=== PATIENT | male | born 1950 | race Caucasian/White ===

== ENCOUNTER 2017-05-10 16:13 | Inpatient (IN) | payer OTHER ==
[~2017-05-10] VITALS: Ht 182.9 cm; Wt 79.7 kg
--- NOTE | 2017-05-10 17:56 | EMERGENCY ROOM VISIT NOTE ---
History Report prepared by Natalee: Ben Walker Under the Supervision of: Dr. Qi Pinedo D.O. First contact with patient: 17:04 Chief Complaint: CONFUSION Stated Complaint: AMS/ WHILE DRIVING CAR Nursing Triage Summary: Patient arrived via BLS from driving in his car. Patient is from [place] but was driving to see family in [place] when several people noticed he was swarving all over the road and called the police. Police arrived on scene and the patient appeared to be confused. Patient his history of hemorrhagic stroke in 2001 and has deficits in his right arm (flaccid) and right leg he is able to move, but wears a brace. Per ems report the confusion comes and goes. PT reports his eyes were burning and was trying to put eye drops in and that's why he was swarving. History of Present Illness The patient is a 66 year old male who presents to the Emergency Room with complaints of constant confusion occurring prior to arrival. The patient states that he was driving, and his eye started to get blurry, burning, and teary. He states that someone then called the police on him for swerving on the road, and the EMS brought him for evaluation. He states that he is from [place], and he is currently visiting his sister. He currently denies any dizziness, light headedness, headache, and trouble with his speech. He states that he has seizures, and his last one was in 1999 after not taking his medications, and he also has a history of a stroke. The patient states that he takes Dilantin and lisinopril, though the doses have not changed. He states that he has not taken any of his medications for the past three days. Pt denies fevers, chest pain, shortness of breath, nausea, vomiting, diarrhea, pain with urination, and melena. Source of History: patient Onset: prior to arrival Position: other (global) Quality: other (confusion) Timing: constant Note: Associated symptoms: Blurry vision, burning eyes, and teary eyes. Review of Systems See HPI for pertinent positives & negatives. A total of 10 systems reviewed and were otherwise negative. Past Medical & Surgical Medical Problems: (1) CVA (cerebral vascular accident) (2) Right arm weakness (3) Seizure (4) Stroke Social History Smoking Status: Former Smoker Housing Status: unknown Occupation Status: retired Current/Historical Medications Scheduled Atorvastatin (Lipitor), 20 MG PO DAILY Benzoyl Peroxide (Benzoyl Peroxide), 1 APPLN TOP PRN Cholecalciferol (Vitamin D3), 2 TAB PO DAILY Duloxetine Hcl (Cymbalta), 60 MG PO DAILY Folic Acid (Folic Acid), 1 MG PO DAILY Lisinopril (Zestril), 40 MG PO DAILY Phenytoin Sodium (Dilantin), 400 MG PO QAM Scheduled PRN Aspirin (Aspirin Ec), 81 MG PO DAILY PRN for Pain Allergies Coded Allergies: No Known Allergies (Unverified , 05/10/17) Physical Exam Vital Signs Date Time Temp Pulse Resp B/P (MAP) Pulse Ox O2 Delivery O2 Flow Rate FiO2 05/10/17 22:53 77 18 132/91 99 05/10/17 20:00 71 18 96 05/10/17 19:30 80 19 122/86 98 05/10/17 19:10 135/95 05/10/17 18:24 78 18 124/86 96 Room Air 05/10/17 17:39 79 18 134/86 98 Room Air 05/10/17 16:32 78 05/10/17 16:26 97 Room Air 05/10/17 16:26 37.0 78 18 134/87 97 Room Air Physical Exam GENERAL: alert, well appearing, well nourished, no distress, non-toxic EYE EXAM: normal conjunctiva, PERRL and EOM's grossly intact OROPHARYNX: Ill fitting dentures. No exudate, no erythema, lips, buccal mucosa, and tongue normal and mucous membranes are moist NECK: supple, no nuchal rigidity, no adenopathy, non-tender LUNGS: Diminished breath sounds. No wheezing, rhonchi, or rales. HEART: no murmurs, S1 normal and S2 normal ABDOMEN: abdomen soft, non-tender, normo-active bowel sounds, no masses, no rebound or guarding. BACK: Back is symmetrical on inspection and there is no deformity, no midline tenderness, no CVA tenderness. SKIN: no rashes and no bruising UPPER EXTREMITIES: Right upper extremity has a decreased range of motion and weakness secondary to a prior stroke. Atrophy and contracture of the right hand secondary to prior stroke. Pulses and sensory intact. LOWER EXTREMITIES: Right lower extremity in a brace. Both extremities have normal pulses and no edema. NEURO EXAM: Awake, alert, and oriented, but slightly slow to respond. Difficult to tell whether dysarthria from ill-fitting dentures or secondary to prior stroke. Medical Decision & Procedures ER Provider Diagnostic Interpretation: Radiology results have been interpreted by the radiologist and reviewed by me. HEAD WITHOUT CONTRAST (CT) CT DOSE: 823.94 mGycm HISTORY: Mental status change confusion TECHNIQUE: Multiaxial CT images of the head were performed without the use of intravenous contrast. A dose lowering technique was utilized adhering to the principles of ALARA. Comparison: None. Findings: The paranasal sinuses and mastoid air cells are clear. The calvarium and skull base are intact. The ventricles and sulci are within normal limits. There is no mass, hematoma, midline shift, or acute infarct. Old left cerebral infarct. No acute intracranial hemorrhage. No midline shift. Impression: Old left cerebral infarct. Age-related atrophy. No acute intracranial abnormality. The above report was generated using voice recognition software. It may contain grammatical, syntax or spelling errors. Electronically signed by: Cem Palomares M.D. 05/10/2017 7:08 PM Dictated Date/Time: 05/10/2017 7:06 PM Laboratory Results 05/10/17 18:41 Red Blood Count 4.09, Mean Corpuscular Volume 89.5, Mean Corpuscular Hemoglobin 29.3, Mean Corpuscular Hemoglobin Concent 32.8, Mean Platelet Volume 9.4, Neutrophils (%) (Auto) 56.8, Lymphocytes (%) (Auto) 30.1, Monocytes (%) (Auto) 10.7, Eosinophils (%) (Auto) 2.0, Basophils (%) (Auto) 0.2, Neutrophils # (Auto ) 3.07, Lymphocytes # (Auto) 1.63, Monocytes # (Auto) 0.58, Eosinophils # (Auto ) 0.11, Basophils # (Auto) 0.01 05/10/17 18:41 Test 05/10/17 18:41 05/10/17 20:21 05/10/17 22:46 White Blood Count 5.41 K/uL (4.8-10.8) Red Blood Count 4.09 M/uL (4.7-6.1) Hemoglobin 12.0 g/dL (14.0-18.0) Hematocrit 36.6 % (42-52) Mean Corpuscular Volume 89.5 fL (80-100) Mean Corpuscular Hemoglobin 29.3 pg (25-34) Mean Corpuscular Hemoglobin Concent 32.8 g/dl (32-36) Platelet Count 153 K/uL (130-400) Mean Platelet Volume 9.4 fL (7.4-10.4) Neutrophils (%) (Auto) 56.8 % Lymphocytes (%) (Auto) 30.1 % Monocytes (%) (Auto) 10.7 % Eosinophils (%) (Auto) 2.0 % Basophils (%) (Auto) 0.2 % Neutrophils # (Auto) 3.07 K/uL (1.4-6.5) Lymphocytes # (Auto) 1.63 K/uL (1.2-3.4) Monocytes # (Auto) 0.58 K/uL (0.11-0.59) Eosinophils # (Auto) 0.11 K/uL (0-0.5) Basophils # (Auto) 0.01 K/uL (0-0.2) RDW Standard Deviation 45.6 fL (36.4-46.3) RDW Coefficient of Variation 13.8 % (11.5-14.5) Immature Granulocyte % (Auto) 0.2 % Immature Granulocyte # (Auto) 0.01 K/uL (0.00-0.02) Prothrombin Time 11.3 SECONDS (9.0-12.0) Prothromb Time International Ratio 1.1 (0.9-1.1) Anion Gap 4.0 mmol/L (3-11) Est Creatinine Clear Calc Drug Dose 70.6 ml/min Estimated GFR () 79.5 Estimated GFR (Non- 68.6 BUN/Creatinine Ratio 14.1 (10-20) Calcium Level 8.9 mg/dl (8.5-10.1) Phosphorus Level 3.2 mg/dl (2.5-4.9) Magnesium Level 2.0 mg/dl (1.8-2.4) Total Bilirubin 0.4 mg/dl (0.2-1) Aspartate Amino Transf (AST/SGOT) 12 U/L (15-37) Alanine Aminotransferase (ALT/SGPT) 12 U/L (12-78) Alkaline Phosphatase 83 U/L (45-117) Troponin I < 0.015 ng/ml (0-0.045) Total Protein 6.7 gm/dl (6.4-8.2) Albumin 3.5 gm/dl (3.4-5.0) Globulin 3.2 gm/dl (2.5-4.0) Albumin/Globulin Ratio 1.1 (0.9-2) Thyroid Stimulating Hormone (TSH) 0.890 uIu/ml (0.300-4.500) Phenytoin (Dilantin) Level 3.9 mcg/mL (10-20) Urine Color DK YELLOW Urine Appearance CLEAR (CLEAR) Urine pH 5.0 (4.5-7.5) Urine Specific [place] 1.032 (1.000-1.030) Urine Protein TRACE (NEG) Urine Glucose (UA) NEG (NEG) Urine Ketones NEG (NEG) Urine Occult Blood NEG (NEG) Urine Nitrite NEG (NEG) Urine Bilirubin NEG (NEG) Urine Urobilinogen NEG (NEG) Urine Leukocyte Esterase NEG (NEG) Urine WBC (Auto) 1-5 /hpf (0-5) Urine RBC (Auto) 0-4 /hpf (0-4) Urine Hyaline Casts (Auto) 1-5 /lpf (0-5) Urine Epithelial Cells (Auto) 5-10 /lpf (0-5) Urine Bacteria (Auto) NEG (NEG) Urine Opiates Screen NEG (NEG) Urine Methadone, Qualitative NEG (NEG) Urine Barbiturates NEG (NEG) Urine Phencyclidine (PCP) Level NEG (NEG) Ur Amphetamine/Methamphetamine NEG (NEG) MDMA (Ecstasy) Screen NEG (NEG) Urine Benzodiazepines Screen NEG (NEG) Urine Cocaine Metabolite NEG (NEG) Urine Marijuana (THC) NEG (NEG) Laboratory results per my review. ECG Indication: other (confusion) Rate (beats per minute): 77 Rhythm: sinus rhythm Findings: T-wave inversion (isolated in Lead 3), no acute ischemic change, other (Normal axis, normal interval) ED Course 1703: The patient was evaluated in room A12. A complete history and physical exam was performed. 1816: I talked to the patient, and he is now agreeable to labs and radiology testing. 1900: I talked with the patient's brother on the phone, and he states that the patient is driving from [place] to visit his sister in [place]. He states that during the patient's previous stroke they were suspicious of cocaine use, though he does not think that the patient uses drugs anymore. He additionally notes that the patient is occasionally non-compliant. He states that the story he heard was that the patient was diving slow and erratically, and bystanders thought that he was drunk. Additionally, at one point he was driving on the wrong side of the road. 2041: I discussed the patient with his sister over the phone, and she was unaware of his condition today. 2044: I reevaluated the patient, and he is agreeable to the treatment plan. 2138: I reviewed the patient's case with Dr. Nelson. He will evaluate the patient for further management. Medical Decision Differential diagnosis: Etiologies such as metabolic, infection, hypoglycemia, electrolyte abnormalities , cardiac sources, intracerebral event, toxicologic, neurologic, as well as others were entertained. Patient here denying any complaints, was oriented and I suspect in his usual state of health despite chronic right-sided deficits from prior stroke. I discussed the patient's presentation today and events leading up to his ER visit with his siblings who are concerned as well. They state patient will often pick and choose one to take his medications. Concern given altered mental status noted on scene by police and EMS for possible stroke versus seizure. No evidence of infectious etiology or joint abnormality found. After extensive bedside conversation, patient eventually agreeable with admission for continued monitoring and treatment. Patient given dose of his usual medications here as he had not taken them in 3 days. Medication Reconcilliation Current Medication List: was personally reviewed by me Blood Pressure Screening Patient's blood pressure: Normal blood pressure Consults Time Called: 2100 Consulting Physician: Dr. Nelson Returned Call: 2138 I reviewed the patient's case with Dr. Nelson. He will evaluate the patient for further management. Impression Primary Impression: Change in mental status Additional Impressions: Confusion Right arm weakness Noncompliance Scribe Attestation The scribe's documentation has been prepared under my direction and personally reviewed by me in its entirety. I confirm that the note above accurately reflects all work, treatment, procedures, and medical decision making performed by me. Departure Information Dispostion Being Evaluated By Hospitalist Patient Instructions My [facility] Problem Qualifiers Primary Impression: Change in mental status Altered mental status type: transient alteration of awareness Qualified Codes : R40.4 - Transient alteration of awareness
[2017-05-10] MEDS ORDERED: DULO60CA44 PO (18:47)
[2017-05-10] MEDS ORDERED: FLV1 PO (18:47)
[2017-05-10] MEDS ORDERED: BENZ10LO15 TOP (18:47)
[2017-05-10] MEDS ORDERED: ASPI81TA28 PO (18:47)
[2017-05-10] MEDS ORDERED: ATOR-22 PO (18:47)
[2017-05-10] MEDS ORDERED: CHOL1000 PO (18:47)
[2017-05-10] MEDS ORDERED: LISI40TA PO (18:47)
[2017-05-10] MEDS ORDERED: PHN/100 PO (18:47)
--- NOTE | 2017-05-10 19:10 | DIAGNOSTIC IMAGING REPORT ---
HEAD WITHOUT CONTRAST (CT) CT DOSE: 823.94 mGycm HISTORY: Mental status change confusion TECHNIQUE: Multiaxial CT images of the head were performed without the use of intravenous contrast. A dose lowering technique was utilized adhering to the principles of ALARA. Comparison: None. Findings: The paranasal sinuses and mastoid air cells are clear. The calvarium and skull base are intact. The ventricles and sulci are within normal limits. There is no mass, hematoma, midline shift, or acute infarct. Old left cerebral infarct. No acute intracranial hemorrhage. No midline shift. Impression: Old left cerebral infarct. Age-related atrophy. No acute intracranial abnormality. The above report was generated using voice recognition software. It may contain grammatical, syntax or spelling errors. Electronically signed by: Cem Palomares M.D. 05/10/2017 7:08 PM Dictated Date/Time: 05/10/2017 7:06 PM
[2017-05-10 19:14] LABS: BASO % 0.2 %; BASO ABS # 0.01 K/uL (0-0.2); COMPLETE YES; HEMATOCRIT 36.6 % (42-52); IG% 0.2 %; LYMPH % 30.1 %; LYMPH ABS # 1.63 K/uL (1.2-3.4); MEAN CELL VOLUME 89.5 fL (80-100); MEAN CORPUSCULAR HEMOGLOBIN 29.3 pg (25-34); MEAN CORPUSCULAR HGB CONC 32.8 g/dl (32-36); MEAN PLATELET VOLUME 9.4 fL (7.4-10.4); MONO % 10.7 %; NEUT % 56.8 %; PLATELET COUNT 153 K/uL (130-400); RED BLOOD COUNT 4.09 M/uL (4.7-6.1); WHITE BLOOD COUNT 5.41 K/uL (4.8-10.8)
[2017-05-10 19:31] LABS: ALT/SGPT 12 U/L (12-78); BLOOD UREA NITROGEN 16 mg/dl (7-18); BUN/CREATININE RATIO 14.1 (10-20); CALCIUM 8.9 mg/dl (8.5-10.1); CARBON DIOXIDE 29 mmol/L (21-32); CHLORIDE 111 mmol/L (98-107); GLUCOSE 88 mg/dl (70-99); POTASSIUM 3.7 mmol/L (3.5-5.1); SODIUM 144 mmol/L (136-145)
[2017-05-10 19:33] LABS: INR 1.1 (0.9-1.1); PROTHROMBIN TIME (PATIENT) 11.3 SECONDS (9.0-12.0)
[2017-05-10 19:42] LABS: ALB/GLOB RATIO 1.1 (0.9-2); ALKALINE PHOSPHATASE 83 U/L (45-117); AST/SGOT 12 U/L (15-37); PHOSPHORUS 3.2 mg/dl (2.5-4.9)
[2017-05-10 20:43] LABS: URINE APPEARANCE CLEAR (CLEAR); URINE COLOR DK YELLOW; URINE NITRITE NEG (NEG); URINE SPECIFIC GRAVITY 1.032 (1.000-1.030); UROBILINOGEN NEG (NEG); ZZUR CULT IF INDIC CLEAN CATCH NO
[2017-05-10 20:45] LABS: MANUAL MICROSCOPIC REQUIRED? NO; REVIEW REQ? NO
[2017-05-10 20:47] LABS: URINE BILIRUBIN NEG (NEG)
[2017-05-10 21:08] LABS: BENZODIAZEPINE, URINE NEG (NEG); COCAINE,URINE NEG (NEG); PHENCYCLIDINE, URINE NEG (NEG)
[2017-05-10] MEDS ORDERED: PHARMACIST DISCHARGE MED REC CONSULT PRN (23:00)
[2017-05-10] MEDS ORDERED: ACETAMINOPHEN IV 100 ML IV PRN (23:00)
[2017-05-10] MEDS ORDERED: ONDANSETRON INJ 2 MG/ML 2 ML VIAL IV PRN (23:00)
[2017-05-10] MEDS ORDERED: ASPIRIN 81 MG ECTAB PO PRN (23:15)
--- NOTE | 2017-05-10 23:23 | History and Physical ---
History & Physical Date & Time of Service: May 10, 2017 at 23:23 Chief Complaint: Ams/ While Driving Car Primary Care Physician: No Doctor, Assigned History of Present Illness Source: patient, hospital records The patient is a 58-year-old male brought to the emergency department by EMS due to constant confusion that occurred prior to arrival. The patient reported that while he was driving his vision started to get E with burning and tearing, and he was reported to the police due to swerving on the road. Patient reports that he is from [place], and currently is visiting his sister. He reports that he has history of seizures, with the last one in the year 1999, and also has a history of stroke. He reports that he has not taken his Dilantin or lisinopril for the past 3 days. He wears a brace on his right leg due to residual deficits from a previous hemorrhagic stroke in 2001. He was noted to have right arm deficit of unknown chronicity. Social History Smoking Status: Former Smoker Smokeless Tobacco Use: No Alcohol Use: none Drug Use: none Occupational Status: retired Immunizations History of Influenza Vaccine: Unknown History of Tetanus Vaccine?: Unknown History of Pneumococcal: Unknown History of Hepatitis B Vaccine: Unknown Multi-Drug Resistant Organisms History of MDRO: No Allergies Coded Allergies: No Known Allergies (Unverified , 05/10/17) Home Medications Scheduled Atorvastatin (Lipitor), 20 MG PO DAILY Benzoyl Peroxide (Benzoyl Peroxide), 1 APPLN TOP PRN Cholecalciferol (Vitamin D3), 2 TAB PO DAILY Duloxetine Hcl (Cymbalta), 60 MG PO DAILY Folic Acid (Folic Acid), 1 MG PO DAILY Lisinopril (Zestril), 40 MG PO DAILY Phenytoin Sodium (Dilantin), 400 MG PO QAM Scheduled PRN Aspirin (Aspirin Ec), 81 MG PO DAILY PRN for Pain Review of Systems The patient denies chest pain, palpitations, shortness of breath, cough, lower extremity swelling, vision change, hearing change, sore throat, fevers, chills, sweats, weight change, fatigue, nausea, vomiting, diarrhea or constipation, abdominal pain, pelvic pain, blood in urine or stool, dysuria, urinary frequency or urgency, lightheadedness, dizziness, headache, rash, abnormal bruising or bleeding, imbalance, generalized weakness, generalized arthralgias or myalgias, back or neck pain, night sweats, or allergy symptoms. The review of systems is otherwise negative other than for that already noted above, and at least 10 systems have been reviewed. Physical Exam Vital Signs Date Time Temp Pulse Resp B/P (MAP) Pulse Ox O2 Delivery O2 Flow Rate FiO2 05/10/17 22:53 77 18 132/91 99 05/10/17 20:00 71 18 96 05/10/17 19:30 80 19 122/86 98 05/10/17 19:10 135/95 05/10/17 18:24 78 18 124/86 96 Room Air 05/10/17 17:39 79 18 134/86 98 Room Air 05/10/17 16:32 78 05/10/17 16:26 97 Room Air 05/10/17 16:26 37.0 78 18 134/87 97 Room Air The patient is awake, well-developed and adequately nourished, alert but disoriented, with upper dental plates falling out of his mouth. lying in bed and in no acute distress. HEENT--PERRL, EOMI, mucous membranes and oropharynx dry. Neck--supple, no JVD or bruits, thyroid normal, trachea midline, no adenopathy. Heart--normal S1 and S2, no extra beats, no murmurs, rubs or gallops. Lungs--clear bilaterally with good air movement, no respiratory distress, no accessory muscle use. Abdomen--normal bowel sounds and soft, nontender and nondistended, no hernias or masses, no organomegaly. Extremities--no cyanosis, clubbing or edema. There are good distal pulses b/l. Dermatologic--normal skin turgor, normal color, warm and dry, no abnormal lymph nodes, no rash. Neurologic--cranial nerves II through XII grossly intact, right upper extremity severely reduced motor strength, with left upper extremity normal. Right lower extremity with brace, and 4+/5 motor, with left lower extremity normal. Rheumatologic--as above under neurologic. Psychiatric--confused Diagnostics Laboratory Results Results Past 24 Hours Test 05/10/17 18:41 05/10/17 20:21 05/10/17 22:46 Range/Units White Blood Count 5.41 4.8-10.8 K/uL Red Blood Count 4.09 4.7-6.1 M/uL Hemoglobin 12.0 14.0-18.0 g/dL Hematocrit 36.6 42-52 % Mean Corpuscular Volume 89.5 80-100 fL Mean Corpuscular Hemoglobin 29.3 25-34 pg Mean Corpuscular Hemoglobin Concent 32.8 32-36 g/dl Platelet Count 153 130-400 K/uL Mean Platelet Volume 9.4 7.4-10.4 fL Neutrophils (%) (Auto) 56.8 % Lymphocytes (%) (Auto) 30.1 % Monocytes (%) (Auto) 10.7 % Eosinophils (%) (Auto) 2.0 % Basophils (%) (Auto) 0.2 % Neutrophils # (Auto) 3.07 1.4-6.5 K/uL Lymphocytes # (Auto) 1.63 1.2-3.4 K/uL Monocytes # (Auto) 0.58 0.11-0.59 K/uL Eosinophils # (Auto) 0.11 0-0.5 K/uL Basophils # (Auto) 0.01 0-0.2 K/uL RDW Standard Deviation 45.6 36.4-46.3 fL RDW Coefficient of Variation 13.8 11.5-14.5 % Immature Granulocyte % (Auto) 0.2 % Immature Granulocyte # (Auto) 0.01 0.00-0.02 K/uL Prothrombin Time 11.3 9.0-12.0 SECONDS Prothromb Time International Ratio 1.1 0.9-1.1 Sodium Level 144 136-145 mmol/L Potassium Level 3.7 3.5-5.1 mmol/L Chloride Level 111 98-107 mmol/L Carbon Dioxide Level 29 21-32 mmol/L Anion Gap 4.0 3-11 mmol/L Blood Urea Nitrogen 16 7-18 mg/dl Creatinine 1.10 0.60-1.40 mg/dl Est Creatinine Clear Calc Drug Dose 70.6 ml/min Estimated GFR () 79.5 Estimated GFR (Non- 68.6 BUN/Creatinine Ratio 14.1 10-20 Random Glucose 88 70-99 mg/dl Calcium Level 8.9 8.5-10.1 mg/dl Phosphorus Level 3.2 2.5-4.9 mg/dl Magnesium Level 2.0 1.8-2.4 mg/dl Total Bilirubin 0.4 0.2-1 mg/dl Aspartate Amino Transf (AST/SGOT) 12 15-37 U/L Alanine Aminotransferase (ALT/SGPT) 12 12-78 U/L Alkaline Phosphatase 83 45-117 U/L Troponin I < 0.015 0-0.045 ng/ml Total Protein 6.7 6.4-8.2 gm/dl Albumin 3.5 3.4-5.0 gm/dl Globulin 3.2 2.5-4.0 gm/dl Albumin/Globulin Ratio 1.1 0.9-2 Thyroid Stimulating Hormone (TSH) 0.890 0.300-4.500 uIu/ml Phenytoin (Dilantin) Level 3.9 10-20 mcg/mL Urine Color DK YELLOW Urine Appearance CLEAR CLEAR Urine pH 5.0 4.5-7.5 Urine Specific [place] 1.032 1.000-1.030 Urine Protein TRACE NEG Urine Glucose (UA) NEG NEG Urine Ketones NEG NEG Urine Occult Blood NEG NEG Urine Nitrite NEG NEG Urine Bilirubin NEG NEG Urine Urobilinogen NEG NEG Urine Leukocyte Esterase NEG NEG Urine WBC (Auto) 1-5 0-5 /hpf Urine RBC (Auto) 0-4 0-4 /hpf Urine Hyaline Casts (Auto) 1-5 0-5 /lpf Urine Epithelial Cells (Auto) 5-10 0-5 /lpf Urine Bacteria (Auto) NEG NEG Urine Opiates Screen NEG NEG Urine Methadone, Qualitative NEG NEG Urine Barbiturates NEG NEG Urine Phencyclidine (PCP) Level NEG NEG Ur Amphetamine/Methamphetamine NEG NEG MDMA (Ecstasy) Screen NEG NEG Urine Benzodiazepines Screen NEG NEG Urine Cocaine Metabolite NEG NEG Urine Marijuana (THC) NEG NEG Diagnostic Radiology Patient Name: NEMO SCHULZ Unit Number: [id number] Dictated: 05/10/171905 Transcribed: 05/10/171905 MS Printed Date/Time: [~ rep prt dt]/[~ rep prt tm] [~ rep ct labl] - [~ rep ct ivnm] [facility] Radiology Department [place], [place] [id number] Dictated: 05/10/171905 Transcribed: 05/10/171905 MS Printed Date/Time: [~ rep prt dt]/[~ rep prt tm] [~ rep ct labl] - [~ rep ct ivnm] [~ rep ct add3]] HEAD WITHOUT CONTRAST (CT) CT DOSE: 823.94 mGycm HISTORY: Mental status change confusion TECHNIQUE: Multiaxial CT images of the head were performed without the use of intravenous contrast. A dose lowering technique was utilized adhering to the principles of ALARA. Comparison: None. Findings: The paranasal sinuses and mastoid air cells are clear. The calvarium and skull base are intact. The ventricles and sulci are within normal limits. There is no mass, hematoma, midline shift, or acute infarct. Old left cerebral infarct. No acute intracranial hemorrhage. No midline shift. Impression: Old left cerebral infarct. Age-related atrophy. No acute intracranial abnormality. The above report was generated using voice recognition software. It may contain grammatical, syntax or spelling errors. Electronically signed by: Cem Palomares M.D. 05/10/2017 7:08 PM Dictated Date/Time: 05/10/2017 7:06 PM The status of this report is Signed. Draft = Not yet reviewed or approved by Radiologist. Signed = Reviewed and approved by Radiologist. <AttendingPhy></AttendingPhy> <FamilyPhy></FamilyPhy> <PrimaryPhy></PrimaryPhy> <UnitNumber>[id number]</UnitNumber> <VisitNumber>[id number]</VisitNumber> < PatientName>NEMO SCHULZ JR</PatientName> <DateOfBirth>1950</ DateOfBirth> <Location>[facility]</Location> <ServiceDate>05/10/17</ServiceDate> <MNE >ESINDI</MNE> <OrderingPhy>PheQi patino DO</OrderingPhy> <OrderingPhyMNE>f rep ord dr estrada</OrderingPhyMNE> <DictatingPhyMNE>f rep dict dr estrada</ DictatingPhyMNE> <CCListMNE>f rep ct mne</CCListMNE> <AdmittingPhyMNE>f pt admit dr estrada</AdmittingPhyMNE> <AttendingPhyMNE>f pt attend dr estrada</ AttendingPhyMNE> <ConsultingPhyMNE>f pt consult dr estrada</ConsultingPhyMNE> <FamilyPhyMNE>f pt fam dr estrada</FamilyPhyMNE> <OtherPhyMNE>f pt other dr estrada</OtherPhyMNE> < PrimaryPhyMNE>f pt prim care dr estraad</PrimaryPhyMNE> <ReferringPhyMNE>f pt referring dr estrada</ReferringPhyMNE> EKG EKG shows normal sinus rhythm at 77 bpm, with nonspecific ST-T changes. Impression Assessment and Plan CVA/history of hemorrhagic CVA 2002/seizure disorder/right arm weakness-- CT of the head shows old left cerebral infarction. Order MRI of brain combo, MRA of neck combo, and MRA of head without contrast. Aspirin 81 mg by mouth daily, changed from his use of when necessary for pain in the past. Neuro checks every 4 hours. Consult neurology. Seizure disorder- continue Dilantin ER 40 mg by mouth every morning. Order an EEG. Hypertension/nonspecific ST-T changes on EKG-- Continue lisinopril 40 mg by mouth daily. The patient will be admitted to telemetry for serial cardiac enzymes, cardiac rhythm monitoring and a 2-D echocardiogram with Dopplers. Hyperlipidemia-- Continue atorvastatin 20 mg by mouth daily. Check a fasting lipid profile and hemoglobin A1c. Depression-- Continue Cymbalta 60 mg by mouth daily. Level of Care Telemetry Advanced Directives Existing Advance Directive: No Existing Living Will: No Existing Power of Storage Brine Worker: No Resuscitation Status FULL RESUSCITATION VTE Prophylaxis VTE Risk Assessment Done? Y/N: Yes Risk Level: High Given or contraindicated: Enoxaparin (Lovenox)SQ, SCD's Social Service Consult None Apply
[2017-05-11 00:45] VITALS: BP 150/87; PULSE 73; TEMP 36.4; O2SAT 99; Ht 182.9 cm; Wt 79.7 kg
[2017-05-11] MEDS ORDERED: NSS + 20MEQ KCL 1000ML 1,000 ML IV SCH (01:00)
[2017-05-11] MEDS ORDERED: FAMOTIDINE IV INJ 20 MG in DEXTROSE 5% 100ML 100 ML IV SCH (02:00)
[2017-05-11 04:31] VITALS: BP 131/84; PULSE 70; TEMP 36.5; O2SAT 99
[2017-05-11 06:29] LABS: BASO % 0.8 %; BASO ABS # 0.03 K/uL (0-0.2); COMPLETE YES; EOS % 3.3 %; HEMATOCRIT 34.7 % (42-52); IG% 0.3 %; LYMPH % 32.8 %; LYMPH ABS # 1.31 K/uL (1.2-3.4); MEAN CELL VOLUME 89.4 fL (80-100); MEAN CORPUSCULAR HEMOGLOBIN 29.1 pg (25-34); MEAN CORPUSCULAR HGB CONC 32.6 g/dl (32-36); MEAN PLATELET VOLUME 9.2 fL (7.4-10.4); MONO % 13.5 %; NEUT % 49.3 %; PLATELET COUNT 123 K/uL (130-400); RED BLOOD COUNT 3.88 M/uL (4.7-6.1)
[2017-05-11 06:47] LABS: PROTHROMBIN TIME (PATIENT) 11.2 SECONDS (9.0-12.0)
[2017-05-11 07:06] LABS: CKMB/CK RATIO 2.8 (0-3.0)
[2017-05-11 08:10] LABS: ESTIMATED AVERAGE GLUCOSE 100 mg/dl; HA1C FLAG Normal (Normal)
[2017-05-11 08:58] LABS: BUN/CREATININE RATIO 15.4 (10-20); CALCIUM 8.7 mg/dl (8.5-10.1); CREATININE 0.98 mg/dl (0.60-1.40); POTASSIUM 4.2 mmol/L (3.5-5.1)
[2017-05-11] MEDS ORDERED: LISINOPRIL 40 MG TAB PO SCH (09:00)
[2017-05-11] MEDS ORDERED: DULOXETINE HCL 60 MG CAP PO SCH (09:00)
[2017-05-11] MEDS ORDERED: CHOLECALCIFEROL 1000 INTER.UNIT TAB PO SCH (09:00)
[2017-05-11] MEDS ORDERED: PHENYTOIN SODIUM ER 100 MG CAP PO SCH (09:00)
[2017-05-11] MEDS ORDERED: ATORVASTATIN 40 MG TAB PO SCH (09:00)
[2017-05-11] MEDS ORDERED: ATORVASTATIN 20 MG TAB PO SCH (09:00)
[2017-05-11 09:01] LABS: CHOLESTEROL/HDL RATIO 2.2
--- NOTE | 2017-05-11 09:39 | Neurology Consultation ---
Neurology Consultation Date of Consultation: May 11, 2017. Attending Physician: Jose Manuel Molina D.O. Primary Care Physician: No Doctor, Assigned Reason for Consultation: Episode of confusion? 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 He has a chronic residual spastic right hemiparesis and is able to ambulate independently with a cane and leg brace. He reports that as a result of his intracerebral hemorrhage he was placed on Dilantin. He states that he experienced one seizure as a result of medication noncompliance about a year or so after he was started on Dilantin. The patient also complains of excessive tearing of his eyes and associated stinging which tends to be worse for the right eye. He has been applying drops to address these symptoms. The patient states that he was driving from [place] to see some family locally. He admits that he missed a few doses of his Dilantin. He complains that his eyes were stinging and watering excessively while driving. He was attempting to put drops in his eyes. He was apparently observed to be driving erratically and pulled over by the police. The emergency record indicates that the patient was perhaps acting intermittently confused. He was subsequently brought to the emergency department for further assessment. As above, the patient has a chronic spastic right hemiparesis and was felt that he was probably at his neurological baseline during his assessment in the emergency department. A CT of the head was completed. I reviewed the images as well as the radiologist's report. There is evidence of a chronic left cerebral infarct with encephalomalacia affecting the left frontal lobe. No evidence of hemorrhage or other acute process. An electrocardiogram reveals a sinus rhythm, 77 bpm. A phenytoin level is low, 3.9. Serum glucose is 88. A urine toxicology screen is negative. The patient was ultimately admitted to the [facility] for further evaluation and management. He has extensive testing ordered at this point including a brain MRI, MRA of the head and neck, echocardiogram, and electroencephalogram. The patient is quite upset regarding the circumstances of his current hospitalization. He does not believe that anything is wrong with him. He feels as if he is back to his baseline. Other than persistent watery eyes and associated discomfort, he does not really have any other complaints. He indicates that his chronic spastic right hemiparesis is unchanged. He denies headache. He denies any change in vision. He denies any new weakness or sensory loss. He reports that he is not really interested in having any further testing completed and is prepared to signed himself out AGAINST MEDICAL ADVICE. Past Medical/Surgical History Medical Problems: (1) Change in mental status Status: Acute (2) Confusion Status: Acute Family History The patient reports that his mother of complications due to an intracerebral aneurysm at an elderly age Social History Smokeless Tobacco Use: No Alcohol Use: none Drug Use: none Housing Status: unknown Occupation Status: retired Allergies Coded Allergies: No Known Allergies (Unverified , 05/10/17) Current Inpatient Medications Current Inpatient Medications Medications (Trade) Dose Ordered Sig/Yimi Route Start Time Stop Time Status Last Admin Dose Admin Atorvastatin Calcium (Lipitor Tab) 40 mg QAM PO 05/11/17 09:00 06/10/17 08:59 Miscellaneous Information (Pharmacist Discharge Med Rec Consult) 1 ea UD PRN N/A 05/10/17 23:00 06/09/17 22:59 Ondansetron HCl (Zofran Inj) 4 mg Q6H PRN IV 05/10/17 23:00 06/09/17 22:59 Potassium Chloride/Sodium Chloride 1,000 ml @ 100 mls/hr Q10H IV 05/11/17 01:00 06/10/17 00:59 05/11/17 01:42 100 MLS/HR Acetaminophen 100 ml @ 400 mls/hr Q8H PRN IV 05/10/17 23:00 06/09/17 22:59 Famotidine 20 mg/ Dextrose 102 ml @ 200 mls/hr Q12H IV 05/11/17 02:00 06/10/17 01:59 05/11/17 01:42 200 MLS/HR Aspirin (Ecotrin Tab) 81 mg DAILY PRN PO 05/10/17 23:15 06/09/17 23:14 Cholecalciferol (Vitamin D Tab) 1,000 inter.unit DAILY PO 05/11/17 09:00 06/10/17 08:59 Duloxetine HCl (Cymbalta Cap) 60 mg DAILY PO 05/11/17 09:00 06/10/17 08:59 Folic Acid (Folvite Tab) 1 mg DAILY PO 05/11/17 09:00 06/10/17 08:59 Lisinopril (Zestril Tab) 40 mg DAILY PO 05/11/17 09:00 06/10/17 08:59 Phenytoin Sodium (Dilantin Er Cap) 400 mg QAM PO 05/11/17 09:00 06/10/17 08:59 Review of Systems Constitutional: No fevers or chills Eyes: As per history of present illness ENT: No vertigo or dizziness Cardiovascular: No chest pain or palpitations Respiratory: No coughing wheezing or shortness of breath Neurological: As per history of present illness Hematologic: No abnormal bleeding or swollen glands A full 10 point review of systems was obtained from this patient with pertinent positives and negatives described in the history of present illness and otherwise listed above. All remaining systems reviewed and are negative. Physical Exam Vital Signs (Past 24 Hrs): Date Time Temp Pulse Resp B/P (MAP) Pulse Ox O2 Delivery O2 Flow Rate FiO2 05/11/17 04:31 36.5 70 18 131/84 (100) 99 Room Air 05/11/17 04:00 Room Air 05/11/17 00:45 36.4 73 20 150/87 99 Room Air 05/10/17 22:53 77 18 132/91 99 05/10/17 20:00 71 18 96 05/10/17 19:30 80 19 122/86 98 05/10/17 19:10 135/95 05/10/17 18:24 78 18 124/86 96 Room Air 05/10/17 17:39 79 18 134/86 98 Room Air 05/10/17 16:32 78 05/10/17 16:26 97 Room Air 05/10/17 16:26 37.0 78 18 134/87 97 Room Air The patient is a well-developed, well-nourished, elderly male. He is lying comfortably in bed. He is alert and oriented to person place and time. Recent and remote memory intact. Attention and concentration normal. He exhibits a normal spontaneous speech pattern. Patient exhibits an age-appropriate fund of knowledge and normal vocabulary. Visual bishop full to confrontation. Pupils equal round reactive to light and accommodation. Eye movements normal. Facial sensation intact bilaterally. There is mild flattening of the right nasolabial fold. Hearing intact to finger rub bilaterally. Palate elevates to midline. Shoulder shrug weak on the right. Tongue protrudes to midline. Sensation intact to light touch, temperature, vibration, and proprioception in all 4 limbs. Deep tendon reflexes are hyperactive for the right arm and leg, normoactive for the left arm and leg. The right plantar response is upgoing, left plantar response downgoing. There is no dysmetria or dysdiadochokinesia with the left arm and leg. These movements cannot be adequately tested with the right arm and leg due to a spastic right hemiparesis. Ophthalmoscopic examination reveals normal- appearing optic disks and posterior segments, no papilledema or hemorrhages. The sclera for the right eye is mildly injected. Carotid pulses normal to auscultation bilaterally, no bruits. Gait and station not tested due to safety concerns. Patient has a spastic right hemiparesis affecting the arm and leg. Right upper extremity strength is essentially 0. He does have mild residual finger flexion movements for the right hand. Right lower extremity strength is probably about 4 out of 5. He does have fairly good extensor tone for the right lower limb. No atrophy observed. No abnormal movements observed. Laboratory Results Past 24 Hours: 05/11/17 06:04 Red Blood Count 3.88, Mean Corpuscular Volume 89.4, Mean Corpuscular Hemoglobin 29.1, Mean Corpuscular Hemoglobin Concent 32.6, Mean Platelet Volume 9.2, Neutrophils (%) (Auto) 49.3, Lymphocytes (%) (Auto) 32.8, Monocytes (%) (Auto) 13.5, Eosinophils (%) (Auto) 3.3, Basophils (%) (Auto) 0.8, Neutrophils # (Auto ) 1.98, Lymphocytes # (Auto) 1.31, Monocytes # (Auto) 0.54, Eosinophils # (Auto ) 0.13, Basophils # (Auto) 0.03 05/11/17 06:04 Test 05/10/17 18:41 05/10/17 20:21 05/10/17 22:46 05/11/17 06:04 Phosphorus Level 3.2 mg/dl (2.5-4.9) Total Bilirubin 0.4 mg/dl (0.2-1) Aspartate Amino Transf (AST/SGOT) 12 U/L (15-37) Alanine Aminotransferase (ALT/SGPT) 12 U/L (12-78) Alkaline Phosphatase 83 U/L (45-117) Total Protein 6.7 gm/dl (6.4-8.2) Albumin 3.5 gm/dl (3.4-5.0) Globulin 3.2 gm/dl (2.5-4.0) Albumin/Globulin Ratio 1.1 (0.9-2) Thyroid Stimulating Hormone (TSH) 0.890 uIu/ml (0.300-4.500) Phenytoin (Dilantin) Level 3.9 mcg/mL (10-20) Urine Color DK YELLOW Urine Appearance CLEAR (CLEAR) Urine pH 5.0 (4.5-7.5) Urine Specific [place] 1.032 (1.000-1.030) Urine Protein TRACE (NEG) Urine Glucose (UA) NEG (NEG) Urine Ketones NEG (NEG) Urine Occult Blood NEG (NEG) Urine Nitrite NEG (NEG) Urine Bilirubin NEG (NEG) Urine Urobilinogen NEG (NEG) Urine Leukocyte Esterase NEG (NEG) Urine WBC (Auto) 1-5 /hpf (0-5) Urine RBC (Auto) 0-4 /hpf (0-4) Urine Hyaline Casts (Auto) 1-5 /lpf (0-5) Urine Epithelial Cells (Auto) 5-10 /lpf (0-5) Urine Bacteria (Auto) NEG (NEG) Urine Opiates Screen NEG (NEG) Urine Methadone, Qualitative NEG (NEG) Urine Barbiturates NEG (NEG) Urine Phencyclidine (PCP) Level NEG (NEG) Ur Amphetamine/Methamphetamine NEG (NEG) MDMA (Ecstasy) Screen NEG (NEG) Urine Benzodiazepines Screen NEG (NEG) Urine Cocaine Metabolite NEG (NEG) Urine Marijuana (THC) NEG (NEG) Estimated Average Glucose 100 mg/dl Hemoglobin A1c 5.1 % (4.5-5.6) White Blood Count 4.00 K/uL (4.8-10.8) Red Blood Count 3.88 M/uL (4.7-6.1) Hemoglobin 11.3 g/dL (14.0-18.0) Hematocrit 34.7 % (42-52) Mean Corpuscular Volume 89.4 fL (80-100) Mean Corpuscular Hemoglobin 29.1 pg (25-34) Mean Corpuscular Hemoglobin Concent 32.6 g/dl (32-36) Platelet Count 123 K/uL (130-400) Mean Platelet Volume 9.2 fL (7.4-10.4) Neutrophils (%) (Auto) 49.3 % Lymphocytes (%) (Auto) 32.8 % Monocytes (%) (Auto) 13.5 % Eosinophils (%) (Auto) 3.3 % Basophils (%) (Auto) 0.8 % Neutrophils # (Auto) 1.98 K/uL (1.4-6.5) Lymphocytes # (Auto) 1.31 K/uL (1.2-3.4) Monocytes # (Auto) 0.54 K/uL (0.11-0.59) Eosinophils # (Auto) 0.13 K/uL (0-0.5) Basophils # (Auto) 0.03 K/uL (0-0.2) RDW Standard Deviation 45.4 fL (36.4-46.3) RDW Coefficient of Variation 13.9 % (11.5-14.5) Immature Granulocyte % (Auto) 0.3 % Immature Granulocyte # (Auto) 0.01 K/uL (0.00-0.02) Prothrombin Time 11.2 SECONDS (9.0-12.0) Prothromb Time International Ratio 1.0 (0.9-1.1) Activated Partial Thromboplast Time 26.9 SECONDS (21.0-31.0) Partial Thromboplastin Ratio 1.0 Anion Gap 6.0 mmol/L (3-11) Est Creatinine Clear Calc Drug Dose 79.2 ml/min Estimated GFR () 91.4 Estimated GFR (Non- 78.9 BUN/Creatinine Ratio 15.4 (10-20) Calcium Level 8.7 mg/dl (8.5-10.1) Magnesium Level 2.0 mg/dl (1.8-2.4) Total Creatine Kinase 71 U/L (39-308) Creatine Kinase MB 2.0 ng/ml (0.5-3.6) Creatine Kinase MB Ratio 2.8 (0-3.0) Troponin I < 0.015 ng/ml (0-0.045) Triglycerides Level 84 mg/dl (0-150) Cholesterol Level 143 mg/dl (0-200) HDL Cholesterol 65 mg/dl LDL Cholesterol, Calculated 61 mg/dl VLDL Cholesterol, Calculated 17 mg/dl Cholesterol/HDL Ratio 2.2 Impression This is a 66-year-old male with a chronic, spastic, right hemiparesis related to a remote left hemispheric intracerebral hemorrhage were reportedly related to rupture of an aneurysm. He has been taking Dilantin for many years for seizure prevention and reports having a single seizure episode many years ago due to medication noncompliance. He does admit to missing a few doses of his Dilantin recently, a phenytoin level was detected, but below the therapeutic range. There is no indication that he had a seizure recently. I do not see any signs of encephalopathy or confusion at this time. Plan This patient should continue with his Dilantin as previously prescribed. It appears as if he takes 400 mg every morning which should be an appropriate dose for him. He should have a follow-up phenytoin level checked in 5-7 days. I really don't think additional testing is necessary in his case. Obtaining a bedside EEG at this time will not really alter his management. I will cancel this test. If the patient is willing to stay for a brain MRI as ordered then it may be reasonable for him to complete this test to further exclude an acute stroke. However, I believe that his current neurological deficits are chronic and related to his remote left hemispheric hemorrhagic stroke. I have no further recommendations for this patient. He will need to follow-up with his regular doctors in [place] for ongoing management of his Dilantin and chronic spastic right hemiparesis. Please contact me if I may be of further assistance.
[2017-05-11 10:00] VITALS: BP 131/84; PULSE 70; TEMP 36.5; O2SAT 99
--- NOTE | 2017-05-11 10:31 | Discharge Instructions ---
Discharge Instructions Date of Service May 11, 2017. Admission Reason for Admission: Cva, Right Arm Weakness Discharge Discharge Diagnosis / Problem: burning eyes Discharge Goals Goal(s): Decrease discomfort, Improve function, Increase independence, Improve disease control, Learn about illness, Diagnostic testing, Therapeutic intervention, Screening Activity Recommendations Activity Limitations: resume your previous activity Exercise/Sports Limitations: as tolerated . Instructions / Follow-Up Instructions / Follow-Up Patient to be discharged home No changes in medication on discharge Please follow up with PCP in [place] for dilanti level follow up If worsening numbness, weakness, visual changes, shortness of breath or chest pain please report to ER Risk Factors for Stroke: You can reduce your chances of stroke by working with your medical provider to adopt a healthy lifestyle. Some specific ways to lower your chance of stroke are: * If you are a smoker, now is the time to stop smoking cigarettes * If you are diabetic, improve the control of your blood sugars * Avoid excessive amounts of alcohol * Control high blood pressure * Lose weight if you are overweight * Be sure to lead an active lifestyle * Eat a healthy diet low in salt, cholesterol and fat You should know about other risk factors for stroke that you are unable to control. These include: * Age 55 years or older * Male gender * Certain racial groups: , or / * Family History of Stroke, Mini stroke or Heart Attack * Sickle Cell Disease Follow Up: It is important for you to keep your follow up appointments with your medical provider. Current Hospital Diet Patient's current hospital diet: Regular Diet Discharge Diet Recommended Diet: Regular Diet Pending Studies Studies pending at discharge: no Laboratory Results Hemoglobin A1c Test 05/10/17 22:46 Range/Units Estimated Average Glucose 100 mg/dl Hemoglobin A1c 5.1 4.5-5.6 % Lipid Panel Test 05/11/17 06:04 Range/Units Triglycerides Level 84 0-150 mg/dl Cholesterol Level 143 0-200 mg/dl HDL Cholesterol 65 mg/dl Cholesterol/HDL Ratio 2.2 LDL Cholesterol, Calculated 61 mg/dl Medical Emergencies . Who to Call and When: Medical Emergencies: Call 911 immediately if you experience any of the following warning signs and symptoms of Stroke: * Sudden numbness or weakness of the face, arm or leg, especially on one side of the body * Sudden confusion, trouble speaking or understanding * Sudden trouble seeing in one or both eyes * Sudden trouble walking, dizziness, loss of balance or coordination * Sudden severe headache with no cause Do not delay calling 911 if you experience any warning signs or symptoms of a stroke. Delay in seeking medical attention may affect what treatments can be given to you. . Non-Emergent Contact Non-Emergency issues call your: Primary Care Provider Call Non-Emergent contact if: you have any medication questions . . "Provider Documentation" section prepared by Jose Manuel Molina. . Stroke Core Measures Reason no t-PA for Stroke: Treatment not indicated Reason no antithrom by day 2: Treatment not indicated Reason no antithrom at D/C: Treatment not indicated Reason no statin at D/C: Treatment provided - N/A Reason no anticoag w/a fib: Treatment provided - N/A VTE Core Measure Inpt VTE Proph given/why not?: Enoxaparin (Lovenox)SQ, SCD's
--- NOTE | 2017-05-11 13:18 | Discharge Summary ---
Discharge Summary Date of Service May 11, 2017. Discharge Summary Admission Date: May 10, 2017 at 22:55 Discharge Date: May 11, 2017 Discharge Disposition: Home Principal Diagnosis: burning eyes Immunizations: Have You Had Influenza Vaccine: Unknown History of Tetanus Vaccine?: Unknown History of Pneumococcal: Unknown History of Hepatitis B Vaccine: Unknown Consultations: Neurology Medication Reconciliation Continued Medications: Aspirin (Aspirin Ec) 81 Mg Tab 81 MG PO DAILY PRN for Pain Atorvastatin (Lipitor) 20 Mg Tab 20 MG PO DAILY, TAB Benzoyl Peroxide (Benzoyl Peroxide) 5 % Lot 1 APPLN TOP PRN for ACNE Cholecalciferol (Vitamin D3) 1,000 Unit Tab 2 TAB PO DAILY for 90 Days, #180 TAB 3 Refills Duloxetine Hcl (Cymbalta) 60 Mg Cap 60 MG PO DAILY, CAP Folic Acid (Folic Acid) 1 Mg Tab 1 MG PO DAILY Lisinopril (Zestril) 40 Mg Tab 40 MG PO DAILY, TAB Phenytoin Sodium (Dilantin) 100 Mg Cap 400 MG PO QAM, CAP Discharge Exam Review of Systems: Constitutional: No fever, No chills, No sweats, No weight loss, No weakness , No fatigue, No problem reported Eyes: No worsening of vision, No eye pain, No redness, No discharge, No diplopia, No problem reported Respiratory: No cough, No sputum, No wheezing, No shortness of breath, No dyspnea on exertion, No dyspnea at rest, No hemoptysis, No problem reported Cardiovascular: No chest pain, No orthopnea, No PND, No edema, No claudication, No palpitations, No problem reported Abdomen: No pain, No nausea, No vomiting, No diarrhea, No constipation, No GI bleeding, No problem reported Musculoskeletal: No joint pain, No muscle pain, No swelling, No calf pain, No problem reported Genitourinary - Male: No hematuria, No dysuria, No urinary frequency, No urinary urgency, No urinary hesitancy, No urinary retention, No urinary incontinence, No penile discharge, No lesions, No impotence, No problem reported Neurologic: No memory loss, No paralysis, No weakness, No numbness/tingling , No vertigo, No balance problems, No problem reported Psychiatric: No depression symptoms, No anhedonism, No anxiety, No insomnia , No substance abuse, No problem reported Integumentary: No rash, No itch, No new/changing skin lesions, No color change, No bleeding, No problem reported Physical Exam: General Appearance: WD/WN, no apparent distress Eyes: normal inspection, PERRL, EOMI, sclerae normal Neck: supple, no adenopathy, thyroid normal, no JVD Respiratory/Chest: chest non-tender, lungs clear, normal breath sounds, no respiratory distress Cardiovascular: regular rate, rhythm, no edema, no gallop, no JVD Abdomen / GI: normal bowel sounds, non tender, soft, no organomegaly Extremities: normal inspection, no calf tenderness, normal capillary refill , no pedal edema Neurologic/Psychiatric: alert, normal mood/affect, oriented x 3 Skin: normal color, warm/dry, no rash Hospital Course This is a 66-year-old male with a chronic, spastic, right hemiparesis related to a remote left hemispheric intracerebral hemorrhage were reportedly related to rupture of an aneurysm. He has been taking Dilantin for many years for seizure prevention and reports having a single seizure episode many years ago due to medication noncompliance. He does admit to missing a few doses of his Dilantin recently, a phenytoin level was detected, but below the therapeutic range. Admitted to doctors hospital No new neuro focal deficits noted Neurology consulted Pt refused MRI/MRA head and neck This patient should continue with his Dilantin as previously prescribed. It appears as if he takes 400 mg every morning which should be an appropriate dose for him. He should have a follow-up phenytoin level checked in 5-7 days. I really don't think additional testing is necessary in his case. He will need to follow-up with his regular doctors in [place] for ongoing management of his Dilantin and chronic spastic right hemiparesis. Total Time Spent: Greater than 30 minutes This includes examination of the patient, discharge planning, medication reconciliation, and communication with other providers. Discharge Instructions Please refer to the electronic Patient Visit Report (Discharge Instructions) for additional information.
== END 2017-05-11 11:27 | disposition home or self-care (01) | DRG 92 ==
LOC: C.EDA 16:22 → C.MED 22:55 → ENRESERV 23:13
PROVIDERS: ADMIT Hospitalist; ATTEND Hospitalist
DX: R20.8 Other disturbances of skin sensation (principal); I69.351 Hemiplegia and hemiparesis following cerebral infarction affecting right dominant side; G40.909 Epilepsy, unspecified, not intractable, without status epilepticus; I10 Essential (primary) hypertension; E78.5 Hyperlipidemia, unspecified; F32.9 Major depressive disorder, single episode, unspecified; Z79.899 Other long term (current) drug therapy; Z87.891 Personal history of nicotine dependence; Z91.14 Patient's other noncompliance with medication regimen; Z82.49 Family history of ischemic heart disease and other diseases of the circulatory system